=== PATIENT | male | born 2005 | race Caucasian/White ===

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

== ENCOUNTER 2025-09-07 05:54 | Emergency (ER) | payer OTHER ==
[~2025-09-07] VITALS: Ht 188 cm; Wt 95.2 kg
[2025-09-07 06:03] VITALS: BP 127/79
[2025-09-07] MEDS ORDERED: Ketorolac Tromethamine 30mg Vial IM ONE (06:50)
[2025-09-07] MEDS ORDERED: ACET500 PO (06:57)
[2025-09-07] MEDS ORDERED: IBUP600 PO (06:57)
== END 2025-09-07 07:59 | disposition home or self-care (01) ==
LOC: ER 05:54
DX: S62.352A Nondisplaced fracture of shaft of third metacarpal bone, right hand, initial encounter for closed fracture (principal); W22.8XXA Striking against or struck by other objects, initial encounter; Y99.0 Civilian activity done for income or pay
CPT/HCPCS: 29125; 73120; 96372; 99283-25; J1885